=== PATIENT | male | born 1980 ===

== ENCOUNTER → 2022-10-20 12:49 | Outpatient (BNVA) | payer MEDICAID, SELFPAY | PROVIDERS: PCP Nurse Practitioner Family; Visit Provider Nurse Practitioner Family | DX: R06.83 Snoring (principal); R40.0 Somnolence | CPT/HCPCS: 99202 ==

== ENCOUNTER → 2023-03-02 12:58 | Outpatient (REF) | payer MEDICAID, SELFPAY | LOC: HO.SL 12:58 | PROVIDERS: Visit Provider Nurse Practitioner Family | DX: R40.0 Somnolence (principal); R06.83 Snoring | CPT/HCPCS: 95806 ==

== ENCOUNTER → 2023-03-02 13:15 | Outpatient (BNV) | payer MEDICAID, SELFPAY | PROVIDERS: Visit Provider Psychiatry & Neurology Neurology | DX: R06.83 Snoring (principal) | CPT/HCPCS: 95806 ==

== ENCOUNTER 2023-09-29 14:27 | Outpatient (AMB) | payer MEDICAID, SELFPAY ==
--- NOTE | 2023-09-29 14:28 | MHC.OFFVIS ---
Intake Vital Signs 09/29/23 14:32 Height 5 ft 10 in Weight 203 lb BMI 29.1 BP 102/70 Blood Pressure Location Lt brachial Position Sitting Pulse 80 Pulse Source Pulse Oximeter Pulse Oximetry (%) 92 Oxygen Delivery Method Room Air Intake Visit Reasons: Follow up Intake Note: Patient presents for F/U. Wakes up often during night and snores. Allergies shellfish derived Allergy (Mild, Verified 09/29/23 14:37) Unknown HPI HPI Comments History of Present Illness Details 43 y/o male patient presents for follow up of sleep study. Pt reports loud snoring, and difficulty falling asleep and staying sleep. Pt states that he experiences gasping, nocturia and morning headache. He has non refreshing sleep and daytime sleepiness. Pt underwent home sleep study. The home sleep study was inconclusive. The AHI was less than 2/hr, oxygen laura was 79%. The total duratoin of O2 sat <88% was 175 min. PSG sleep study ordered, but patient's phone was out of service and could not have phone call for schedule. [facility] Family History (Updated 09/29/23 @ 14:41 by Billie Mon [facility]) Paternal Grandmother Diabetes Social History (Updated 10/20/22 @ 13:07 by Neena Spear) Household Members: Spouse and Children Housing: Apartment Unable to assess alcohol history related to: Unknown Alcohol intake: former Patient Tobacco Use Status: Current someday Tobacco user Tobacco use type: Cigarette Review of Systems Const All systems reviewed & are unremarkable except as noted in HPI and below ENT Reports Normal hearing present Neuro Reports Normal hearing present Physical Exam Vital Signs: BMI result Body Mass Index 29.1 Const General: cooperative and tired appearing Orientation/consciousness: patient oriented x3 Neck Neck: Yes full ROM and Yes supple Resp Effort & Inspection: normal respiratory effort and able to speak in complete sentences Neuro General: patient oriented x3, gait normal and moves all extremities Cranial nerves: Yes Bilaterally intact EOM present, Yes Midline tongue present, Yes Symmetric palate elevation present, Yes Normal hearing present, Yes Ability to bilaterally rotate head present and Yes Ability to bilaterally elevate shoulders present Cognition (Neuro): normal cognition Gait exam (Neuro): Normal gait present Motor exam (neuro): 5/5 motor strength present throughout, Pronator motor function not present and no tremor noted Psych Appearance: grossly normal Mental Status: mental status grossly normal Speech and movement: Normal speech and movement present Affect: normal affect Attitude: cooperative Assessment & Plan Assessment & Plan (1) Daytime sleepiness: Code(s): R40.0 - Somnolence (2) Loud snoring: Code(s): R06.83 - Snoring Plan Pt is advised to undergo in lab sleep study to assess for sleep apnea. Will f/u with pt after study to discuss results and appropriate treatment options. Pt to call with any worsening concerns or questions. Orders: Orders RT PSG in-lab sleep study Today R06.83 - Snoring, R40.0 - Somnolence Coding Level of Care Code Est Pt Level 3 (76051) Diagnoses Daytime sleepiness R40.0 Loud snoring R06.83
[2023-09-29 14:32] VITALS: BP 102/70; PULSE 80; O2SAT 92; BMI 29.1
== END 2023-09-29 14:52 | disposition home or self-care (01) ==
PROVIDERS: Visit Provider Nurse Practitioner Family
DX: R40.0 Somnolence (principal); R06.83 Snoring
CPT/HCPCS: 99213

== ENCOUNTER → 2023-09-29 14:27 | Outpatient (BNVA) | payer MEDICAID, SELFPAY | PROVIDERS: Visit Provider Nurse Practitioner Family | DX: R40.0 Somnolence (principal); R06.83 Snoring; R51.9 Headache, unspecified; R35.1 Nocturia | CPT/HCPCS: 99212 ==

== ENCOUNTER → 2023-10-27 19:30 | Outpatient (REF) | payer MEDICAID, SELFPAY | LOC: HO.SL 19:30 | PROVIDERS: PCP Nurse Practitioner Family; Visit Provider Nurse Practitioner Family | DX: R40.0 Somnolence (principal); R06.83 Snoring | CPT/HCPCS: 95810 ==

== ENCOUNTER → 2023-10-28 05:35 | Outpatient (BNV) | payer MEDICAID, SELFPAY | PROVIDERS: PCP Nurse Practitioner Family; Visit Provider Psychiatry & Neurology Neurology | DX: R40.0 Somnolence (principal); R06.83 Snoring | CPT/HCPCS: 95810 ==